=== PATIENT | male | born 1955 | race Caucasian/White ===

== ENCOUNTER 2022-02-02 06:29 | Outpatient (CLI) | payer MEDICARE, SELFPAY ==
--- NOTE | 2022-02-02 06:47 | USCV_ITS ---
Roscoe Caputo Age: 66 Gender: M : 1955 Exam Date: 02/02/2022 06:58 Ordering Phys: [place] XX Technologist: NILE [place] [facility] [place]: Cerebrovascular disease BP: 140 / 76 HR: 67 Rhythm: Sinus Technical Quality: Adequate MEASUREMENTS (Male / Female) Normal Values 2D ECHO LV Diastolic Diameter PLAX 3.0 cm 4.2 - 5.9 / 3.9 - 5.3 cm LV Systolic Diameter PLAX 2.0 cm IVS Diastolic Thickness 1.5 cm 0.6 - 1.0 / 0.6 - 0.9 cm IVS Systolic Thickness 1.8 cm LVPW Diastolic Thickness 1.5 cm 0.6 - 1.0 / 0.6 - 0.9 cm LVPW Systolic Thickness 1.7 cm RV Chamber Size 2.1 cm LVOT Diameter 2.0 cm LV Ejection Fraction 2D Teich 59.8 % LV Ejection Fraction MOD 2C 57.5 % LV Ejection Fraction 2C AL 64.0 % LA Diameter 1.8 cm LA Width 2.1 cm LA Height 3.1 cm RA Width 3.0 cm RA Height 3.1 cm Aorta at Sinotubular Diameter 2.6 cm IVC Diameter 1.0 cm M-MODE Aortic Annulus Diameter 2.9 cm LA Ao Ratio MM 0.6 MV E Point Septal Separation 0.2 cm DOPPLER AV Peak Velocity 101.0 cm/s LVOT Peak Velocity 93.0 cm/s AV Area Cont Eq vti 2.8 cm squared AV Area Cont Eq pk 2.9 cm squared MV Area PHT 2.0 cm squared Mitral E to A Ratio 0.9 MV E' Velocity 31.0 cm/s Mitral E to MV E' Ratio 5.9 Mitral E to LV E' Lateral Ratio 6.0 Mitral E to LV E' Septal Ratio 5.9 TR Peak Velocity 218.0 cm/s TR Peak Gradient 19.0 mmHg TV Peak E Velocity 52.0 cm/s Right Atrial Pressure 3.0 mmHg Pulmonary Artery Systolic Pressu 22.0 mmHg PV Peak Velocity 94.0 cm/s RV Acceleration Time 0.1 s RV Ejection Time 0.3 s RV AcT/ET 0.4 FINDINGS Left Ventricle Normal left ventricular size. LV systolic function is normal with EF of 55-60%. No regional wall motion abnormalities. Diastolic function is normal Right Ventricle The right ventricle is normal in size and function. Right Atrium The right atrium is normal in size. Left Atrium The left atrium is normal in size. Mitral Valve Structurally normal mitral valve without significant stenosis or prolapse. There is no mitral regurgitation. Aortic Valve Grossly normal Tricuspid Valve Grossly normal. Trace tricuspid regurgitation. Pulmonary artery systolic pressure is normal. Pulmonic Valve Not well visualized. There is trace pulmonic regurgitation. Pericardium Normal pericardium without effusion. Aorta Normal ascending aorta dimension. IVC CONCLUSIONS Technically limited echocardiogram because of poor ultrasonic windows LV systolic function is normal with EF of 55-60% Diastolic function is normal Trace tricuspid regurgitation Trace pulmonic regurgitation No comparison studies are available Silverio Escalera MD (Electronically Signed) Final Date: 12 Feb 2022 21:43 S
== END 2022-02-02 06:30 | disposition home or self-care (01) ==
LOC: RAD 06:31
PROVIDERS: Visit Provider Family Medicine
DX: I69.354 Hemiplegia and hemiparesis following cerebral infarction affecting left non-dominant side (principal)
CPT/HCPCS: 93306